=== PATIENT | female | born 1950 | race Caucasian/White ===

== ENCOUNTER → 2019-10-02 13:15 | Outpatient (CLI) | payer OTHER, SELFPAY ==
--- NOTE | ~2019-10-02 | XR_ITS ---
EXAMINATION: XR chest 2V DATE: 10/02/2019 13:41 INDICATION: Dyspnea, unspecified. TECHNIQUE: Frontal and lateral views of the chest were obtained. COMPARISON: Chest 2 views 10/18/2017 FINDINGS: The chest demonstrates clear lungs without pneumonia, pleural effusion, or pneumothorax. Th e heart size is normal. IMPRESSION: 1. No acute cardiopulmonary disease. Reviewed, dictated and finalized at location A. 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
== END ==
PROVIDERS: PCP Emergency Medicine; Visit Provider Emergency Medicine
DX: R06.00 Dyspnea, unspecified (principal)
CPT/HCPCS: 71046

== ENCOUNTER 2022-02-08 01:09 | Day surgery (SDC) | payer OTHER, SELFPAY ==
[2022-01-23 11:32] VITALS: BMI 25.0
[2022-02-08 06:47] VITALS: BP 98/73; PULSE 74; RESP 18; TEMP 36.5; O2SAT 100
[2022-02-08] MEDS: LACTATED RINGERS 1,000 ML 150 ML IV CONT (06:56)
--- NOTE | 2022-02-08 07:27 | P.PNAN_ITS ---
Anes - Initial Pre Proc Eval Procedure: Operation Date: 02/08/22 08:00 Proposed Procedures p Screening Colonoscopy - Allen Leonard MD Date/Time: 02/08/22 07:27 Surgeon: Allen Leonard MD Pre Op Diagnosis: hx of colon polyps Patient Data Age: 71 Gender: F Height: 1.6 m Weight: 61.8 kg Last Vital Signs Temp 36.5 C 02/08/22 06:47 Pulse 74 02/08/22 06:47 Resp 18 02/08/22 06:47 BP 98/73 L 02/08/22 06:47 Pulse Ox 100 02/08/22 06:47 O2 Del Method Room Air 02/08/22 06:47 Allergies Allergy/AdvReac Type Severity Reaction Status Date / Time No Known Allergies Allergy Unknown Verified 02/08/22 06:44 Home Medications Medication Instructions Recorded Confirmed Type aspirin 81 mg tablet,delayed 81 mg PO DAILY 10/13/19 01/23/22 History release losartan 50 mg tablet 50 mg PO DAILY #90 tabs 08/23/21 01/23/22 Rx Lactobacillus 1 cap PO DAILY 01/23/22 01/23/22 History acidophilus-Bifidobac.animalis 2.5 billion cell capsule (Daily Probiotic) ascorbic acid (vitamin C) 500 mg 500 mg PO DAILY 01/23/22 01/23/22 History tablet coffee extract 100 mg-phosphatidyl 1 cap PO DAILY 01/23/22 01/23/22 History serine 100 mg capsule (Neuriva Original) krill oil 500 mg capsule 500 mg PO DAILY 01/23/22 01/23/22 History loratadine 10 mg tablet (Claritin) 10 mg PO DAILY 01/23/22 01/23/22 History multivitamin with minerals-folic 1 tablet PO DAILY 01/23/22 01/23/22 History acid 0.4 mg tablet simvastatin 10 mg tablet 10 mg PO DAILY 01/23/22 01/23/22 History vitamin B complex 1 tablet PO DAILY 01/23/22 01/23/22 History Patient hx anesthesia problems: none Family hx anesthesia problems: none Results Review: All pre-operative results and documents have been reviewed as part of the pre- operative evaluation. [facility] Past Medical History Medical History (Updated 02/08/22 @ 07:28 by Earl rByson MD) Anxiety HLD (hyperlipidemia) HTN (hypertension) Sinusitis Family History Family History Father Cerebrovascular accident, Onset Age: 87 Sibling Cerebrovascular accident Mother Family history of Alzheimer's disease, Onset Age: 80 Social History Social History Smoking status: Never smoker Alcohol intake: never Living arrangements: with family Spiritual care concerns: No Anes - Eval Final PreProcedure Day of Procedure 02/08/22 07:27 Patient weight: normal Heart: regular rate and rhythm Lungs: clear to auscultation and normal air movement Airway: Mallampati scale class II Neurological: alert and oriented Last oral intake: >/= 8 hours ASA classification: II Emergent: no Anesthetic plan: proceed Anesthesia type and monitoring: general GIVS Results Review: All pre-operative results and documents have been reviewed as part of the pre- operative evaluation. Informed Consent: The patient's anesthetic plan and its attendant risks and benefits were discussed with the patient/family/POA. Questions were solicited and answers provided to the satisfaction of the patient/
--- NOTE | 2022-02-08 07:53 | PM.HPGS ---
History of Present Illness History of Present Illness Consent: Risks, benefits, and alternatives have been discussed and questions answered. Patient agrees to proceed with procedure. Chief complaint: hx of colon polyps Narrative: Mike Chapman is a 71 year old female with colon polyps in 2019 Review of Systems Constitutional: Constitutional: Denies headache(s) and Denies weakness Eyes: Eyes: Denies blurry vision ENT: Reports Normal hearing present, Denies headache(s) and Denies neck pain Cardiovascular: Cardiovascular: Denies chest pain and Denies dyspnea Respiratory: Respiratory: Denies dyspnea Gastrointestinal: Gastrointestinal: Reports no additional gastrointestinal complaints Genitourinary: Genitourinary: Denies dysuria Musculoskeletal: Musculoskeletal: Denies neck pain Integumentary/Breasts: Skin/Breast: Denies dry skin Neurologic: Reports Normal hearing present, Denies headache(s) and Denies weakness Psychiatric: Psychiatric: Denies anxiety Endocrine: Endocrine: Denies change in body appearance Hematologic/Lymphatic: Hematologic/Lymphatic: Denies easy bleeding Allergic/Immunologic: Allergic/Immunologic: Denies urticaria PMF Past Medical History Medical History (Updated 02/08/22 @ 07:54 by Allen Leonard MD) Adenomatous colon polyp Anxiety HLD (hyperlipidemia) HTN (hypertension) Sinusitis Family History Family History Father Cerebrovascular accident, Onset Age: 87 Sibling Cerebrovascular accident Mother Family history of Alzheimer's disease, Onset Age: 80 Social History Social History Smoking status: Never smoker Alcohol intake: never Living arrangements: with family Spiritual care concerns: No Meds Home Medications and Allergies Home Medications Medication Instructions Recorded Confirmed Type aspirin 81 mg tablet,delayed 81 mg PO DAILY 10/13/19 01/23/22 History release losartan 50 mg tablet 50 mg PO DAILY #90 tabs 08/23/21 01/23/22 Rx Lactobacillus 1 cap PO DAILY 01/23/22 01/23/22 History acidophilus-Bifidobac.animalis 2.5 billion cell capsule (Daily Probiotic) ascorbic acid (vitamin C) 500 mg 500 mg PO DAILY 01/23/22 01/23/22 History tablet coffee extract 100 mg-phosphatidyl 1 cap PO DAILY 01/23/22 01/23/22 History serine 100 mg capsule (Neuriva Original) krill oil 500 mg capsule 500 mg PO DAILY 01/23/22 01/23/22 History loratadine 10 mg tablet (Claritin) 10 mg PO DAILY 01/23/22 01/23/22 History multivitamin with minerals-folic 1 tablet PO DAILY 01/23/22 01/23/22 History acid 0.4 mg tablet simvastatin 10 mg tablet 10 mg PO DAILY 01/23/22 01/23/22 History vitamin B complex 1 tablet PO DAILY 01/23/22 01/23/22 History Allergies Allergy/AdvReac Type Severity Reaction Status Date / Time No Known Allergies Allergy Unknown Verified 02/08/22 06:44 Vital Signs Vital Signs - 24 hr 02/08/22 06:47 Temperature 97.7 F Pulse Rate 74 Respiratory Rate 18 Blood Pressure 98/73 L Pulse Oximetry 100 Oxygen Delivery Room Air Exam Const: General: comfortable and no acute distress HENMT: General nose exam: Normal nares present Eyes: General: appearance normal, both eyes and all related structures Neck: Neck: no JVD Resp: Auscultation: clear to auscultation bilaterally Cardio: Rate: regular rate Rhythm: regular rhythm GI: Inspection: non-distended GI Palp: Yes Soft to palpation Skin: General skin exam: normal color Neuro: General: gait normal Speech: normal speech Extrem: General: normal to inspection Psych: Mental Status: mental status grossly normal Assessment and Plan Assessment and plan (1) Adenomatous colon polyp: Code(s): D12.6 - Benign neoplasm of colon, unspecified Status: Acute Assessment and Plan: colonoscopy
[2022-02-08 08:22] VITALS: BP 98/57; PULSE 66; RESP 17; O2SAT 98
[2022-02-08 08:32] VITALS: BP 148/82; PULSE 64; RESP 21; O2SAT 96
[2022-02-08 08:42] VITALS: BP 133/84; PULSE 67; RESP 16; O2SAT 100
== END 2022-02-08 08:48 | disposition home or self-care (01) ==
PROVIDERS: PCP Emergency Medicine; Visit Provider Internal Medicine Gastroenterology
PROC: 0DJD8ZZ Inspection of Lower Intestinal Tract, Via Natural or Artificial Opening Endoscopic (ICD-10-PCS; CPT 45378; principal; 2022-02-08 08:00)
DX: Z12.11 Encounter for screening for malignant neoplasm of colon (principal); D12.2 Benign neoplasm of ascending colon; D12.3 Benign neoplasm of transverse colon; D12.4 Benign neoplasm of descending colon; K57.30 Diverticulosis of large intestine without perforation or abscess without bleeding; I10 Essential (primary) hypertension; E78.5 Hyperlipidemia, unspecified; F41.9 Anxiety disorder, unspecified; Z79.82 Long term (current) use of aspirin
CPT/HCPCS: 45385; 88305; J2001; J2704; J7120

== ENCOUNTER → 2022-03-13 13:50 | Outpatient (CLI) | payer OTHER, SELFPAY ==
--- NOTE | ~2022-03-13 | MM_ITS ---
EXAMINATION: MM screening [facility] BI w manuel HISTORY: Screening mammogram TECHNIQUE: Craniocaudal and mediolateral oblique 3-D tomosynthesis images were obtained and synthetic 2-D images were generated. CAD analysis was submitted and interpreted. COMPARISON: 04/15/2019, 03/01/2018, 12/25/2016 bilateral screening mammogram examinations BREAST PARENCHYMAL COMPOSITION: The breasts are heterogeneously dense, which may obscure small masses . FINDINGS: There is no evidence of suspicious mass, calcification, or architectural distortion to sugg est malignancy in either breast. There has been no suspicious interval change. IMPRESSION: 1. No mammographic evidence of malignancy. 2. Recommend routine screening mammography in one year. BI-RADS Category 1: Negative Reviewed, dictated and finalized at location A.
== END ==
PROVIDERS: PCP Emergency Medicine; Visit Provider Obstetrics & Gynecology
DX: Z12.31 Encounter for screening mammogram for malignant neoplasm of breast (principal)
CPT/HCPCS: 77063; 77067

== ENCOUNTER 2022-11-09 12:27 | Outpatient (CLI) | payer OTHER, SELFPAY ==
--- NOTE | ~2022-11-09 | US_ITS ---
EXAMINATION: US carotid duplex BI DATE: 11/09/2022 13:26 INDICATION: Carotid atherosclerosis and stenosis TECHNIQUE: Grayscale, color Doppler, and pulsed Doppler images of the cervical carotid arteries were obtained. The degree of vessel stenosis is placed in one of the following categories: normal, <50%, 5 0-69%, >=70% but less than near-occlusion, near-occlusion, or total occlusion. Note that percent sten osis relative to normal distal artery lumen diameter is indirectly measured from velocity measurement s as described by Naif, et al. Radiology 2003; 229:340-346. COMPARISON: None. FINDINGS: RIGHT: The right common carotid artery (CCA) peak systolic velocity (PSV) is 90 cm/s. The right internal car otid artery (ICA) PSV is 59 cm/s. The right ICA end-diastolic velocity (EDV) is 20 cm/s. The right IC A/CCA PSV ratio is 0.7. Grayscale and color Doppler images yield an estimate of <50% diameter reducti on from plaque in the ICA. The external carotid artery (ECA) PSV is 106 cm/s. There is antegrade flow in the right vertebral artery. LEFT: The left CCA PSV is 92 cm/s. The left ICA PSV is 70 cm/s. The left ICA EDV is 28 cm/s. The left ICA/C CA PSV ratio is 0.8. Grayscale and color Doppler images yield an estimate of <50% diameter reduction from plaque in the ICA. The ECA PSV is 87 cm/s. There is antegrade flow in the left vertebral artery. IMPRESSION: 1. <50% stenosis in the right internal carotid artery. 2. <50% stenosis in the left internal carotid artery. Reviewed, dictated and finalized at location A.
== END 2022-11-09 12:28 | disposition home or self-care (01) ==
PROVIDERS: PCP Emergency Medicine; Visit Provider Emergency Medicine
DX: I65.23 Occlusion and stenosis of bilateral carotid arteries (principal); R09.89 Other specified symptoms and signs involving the circulatory and respiratory systems
CPT/HCPCS: 93880

== ENCOUNTER 2023-04-14 17:47 | Emergency (ER) | payer MEDICARE, SELFPAY ==
--- NOTE | 2023-04-14 17:54 | ED.GENADULT ---
HPI - General Adult General Chief complaint: Neck Pain/Injury Stated complaint: L SHOULDER/UPPER BACK/NECK PAIN Time Seen by Provider: 04/14/23 17:54 Source: patient Mode of arrival: ambulatory Limitations: no limitations History of Present Illness HPI narrative: 72 yo F presents with c/o upper back and neck pain radiating to both shoulders. Reports pain to R shoulder started 2 to 3 days ago. Began radiating into upper back and neck yesterday while at work. 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 Today has pain into L shoulder also and now not as bad to R shoulder. cannot turn neck to L side due to pain and stiffness. Cannot lift L arm above head, pain to L shoulder worse with movement. States upper back is painful and burning Pain. took aleve last night. Did not take any pain medication today. Pt ambulatory with steady gait. All systems reviewed and negative except as noted above. Related Data Home Medications Medication Instructions Recorded Confirmed aspirin 81 mg tablet,delayed 81 mg PO DAILY 10/13/19 04/14/23 release Lactobacillus 1 cap PO DAILY 01/23/22 04/14/23 acidophilus-Bifidobac.animalis 2.5 billion cell capsule (Daily Probiotic) ascorbic acid (vitamin C) 500 mg 500 mg PO DAILY 01/23/22 04/14/23 tablet krill oil 500 mg capsule 500 mg PO DAILY 01/23/22 04/14/23 multivitamin with minerals-folic 1 tablet PO DAILY 01/23/22 04/14/23 acid 0.4 mg tablet Allergies Allergy/AdvReac Type Severity Reaction Status Date / Time No Known Allergies Allergy Unknown Verified 04/14/23 17:54 Review of Systems Review of Systems: CONSTITUTIONAL: Denies fever, chills, or sweats. EYES: Denies visual changes, redness, or discharge. ENT: Denies rhinorrhea, congestion, sore throat, or otalgia. CARDIOVASCULAR: Denies chest pain, palpitations, or edema. RESPIRATORY: Denies cough or dyspnea. GASTROINTESTINAL: Denies abdominal pain, nausea, vomiting, or diarrhea. GENITOURINARY: Denies dysuria or hematuria. SKIN: Denies rash or itching. MUSCULOSKELETAL: Reports upper back pain, bilateral shoulder pain, neck pain. NEUROLOGIC: Denies headache, numbness, or weakness. PSYCHIATRIC: Denies anxiety or depression. All other systems reviewed are negative, except as documented in HPI. [facility] Past Medical History Medical History Adenomatous colon polyp Anxiety HLD (hyperlipidemia) HTN (hypertension) Sinusitis Family History Family History Father Cerebrovascular accident, Onset Age: 87 Sibling Cerebrovascular accident Mother Family history of Alzheimer's disease, Onset Age: 80 Social History Social History Smoking status: Never smoker Alcohol intake: never Lack of Transportation: No Lack of Food: Never True Current Housing: I Have Housing Concerned About Future Housing: No Difficulty Paying Gas/Electric Bills: No Difficulty Paying for Meds: No Currently Unemployed: No Education: High School Diploma/GED Difficulty w/ Childcare or Family Care: No Living arrangements: with family Spiritual care concerns: No Comments At time of signature, agree with nursing past medical, surgical, social and family history. There is no relevant family history pertinent to the presenting complaint. Exam Narrative: GENERAL: This is a well-nourished, well-developed patient, in no apparent distress. HEAD: normocephalic, atraumatic. EYES: PERRL. Sclera clear/white. Vision is grossly intact. EARS: External ears normal NOSE: External nose normal NECK: Neck supple, without lymphadenopathy, masses or thyromegaly. No midline tenderness. tenderness to bilateral trapezius muscle. decreased ROM due to pain. CARDIOVASCULAR: Regular rate and rhythm without murmurs, gallops, or r
[2023-04-14 17:56] VITALS: BP 176/88; PULSE 96; RESP 16; TEMP 37.6; O2SAT 100
== END 2023-04-14 18:12 | disposition home or self-care (01) ==
PROVIDERS: Emergency Provider Nurse Practitioner Family; PCP Emergency Medicine
DX: S16.1XXA Strain of muscle, fascia and tendon at neck level, initial encounter (principal); X50.3XXA Overexertion from repetitive movements, initial encounter; Y99.0 Civilian activity done for income or pay; M54.6 Pain in thoracic spine; E78.5 Hyperlipidemia, unspecified; I10 Essential (primary) hypertension; Z79.82 Long term (current) use of aspirin
CPT/HCPCS: 99213; G0463

== ENCOUNTER → 2023-05-07 14:00 | Outpatient (CLI) | payer MEDICARE, SELFPAY ==
--- NOTE | ~2023-05-07 | MM_ITS ---
EXAMINATION: MM screening [facility] BI w manuel HISTORY: Screening TECHNIQUE: Craniocaudal and mediolateral oblique 3-D tomosynthesis images were obtained and synthetic 2-D images were generated. CAD analysis was submitted and interpreted. COMPARISON: Comparison to multiple prior studies sequentially, with oldest reviewed study dated 12/2015. BREAST PARENCHYMAL COMPOSITION: There are scattered areas of fibroglandular density. FINDINGS: There is no evidence of suspicious mass, calcification, or architectural distortion to sugg est malignancy in either breast. There has been no suspicious interval change. IMPRESSION: 1. No mammographic evidence of malignancy. 2. Recommend routine screening mammography in one year. BI-RADS Category 1: Negative Reviewed, dictated and finalized at location A.
== END ==
PROVIDERS: PCP Emergency Medicine; Visit Provider Obstetrics & Gynecology
DX: Z12.31 Encounter for screening mammogram for malignant neoplasm of breast (principal)
CPT/HCPCS: 77063; 77067

== ENCOUNTER 2023-12-27 09:54 | Emergency (ER) | payer MEDICARE, SELFPAY ==
[2023-12-27 10:05] VITALS: BP 145/88; PULSE 86; RESP 16; TEMP 36.9; O2SAT 98
--- NOTE | 2023-12-27 10:18 | ED.GENADULT ---
HPI - General Adult General Chief complaint: Upper Respiratory Infection Stated complaint: Sore Throat Time Seen by Provider: 12/27/23 10:24 Source: patient, RN notes reviewed and old records reviewed Mode of arrival: ambulatory Limitations: no limitations History of Present Illness HPI narrative: 85 [facility] female to [facility] for complaint cough and hoarseness for 2 weeks. Patient endorses that she was seen at a clinic 1 week ago and given a prescription for prednisone and benzonatate. Patient endorses finishing 5 day course of prednisone and utilizing benzonatate as needed with little improvement. Patient denies chest pain, shortness of breath, fever, allergies. patient able to tolerate fluids by mouth. Respirations even and nonlabored. Patient in no acute distress. Related Data Home Medications Medication Instructions Recorded Confirmed aspirin 81 mg tablet,delayed 81 mg PO DAILY 10/13/19 12/27/23 release Lactobacillus 1 cap PO DAILY 01/23/22 12/27/23 acidophilus-Bifidobac.animalis 2.5 billion cell capsule (Daily Probiotic) ascorbic acid (vitamin C) 500 mg 500 mg PO DAILY 01/23/22 12/27/23 tablet multivitamin with minerals-folic 1 tablet PO DAILY 01/23/22 12/27/23 acid 0.4 mg tablet Allergies Allergy/AdvReac Type Severity Reaction Status Date / Time No Known Allergies Allergy Unknown Verified 12/27/23 10:02 Review of Systems Review of Systems: All systems reviewed & are unremarkable except as noted in HPI and below Constitutional: Constitutional: Reports as per HPI and Reports fever(s) Eyes: Eyes: Reports no additional eye complaints ENT: Reports as per HPI, Reports hoarseness and Reports sore throat Cardiovascular: Cardiovascular: Reports no additional cardiovascular complaints, Denies chest pain and Denies dyspnea Respiratory: Respiratory: Reports no additional respiratory complaints, Reports cough and Denies dyspnea Musculoskeletal: Musculoskeletal: Reports no additional musculoskeletal complaints Neurologic: Reports system reviewed and no additional complaints, except as documented Psychiatric: Psychiatric: Reports no additional psychiatric complaints PMFSH Past Medical History Medical History Adenomatous colon polyp Anxiety Contact dermatitis HLD (hyperlipidemia) HTN (hypertension) Respiratory tract congestion with cough Sinusitis Family History Family History Father Cerebrovascular accident, Onset Age: 87 Sibling Cerebrovascular accident Mother Family history of Alzheimer's disease, Onset Age: 80 Social History Social History Smoking status: Never smoker Alcohol intake: never Current Housing: Decline to Answer Concerned About Future Housing: Decline to Answer Difficulty Paying Gas/Electric Bills: Decline to Answer Difficulty Paying for Meds: Decline to Answer Currently Unemployed: Decline to Answer Education: Decline to Answer Difficulty w/ Childcare or Family Care: Decline to Answer Living arrangements: with family Spiritual care concerns: No Comments At the time of my signature, I reviewed and agree with the nursing past medical, surgical, social, and family history. There is no relevant family history pertinent to the patient complaint. Exam Const: General: cooperative, healthy appearing, comfortable, no acute distress, alert, tired appearing and well nourished Nutritional Appearance: well nourished Orientation/consciousness: patient oriented x3 Limitations: no limitations HENMT: Head: normal to inspection Ears: external ears normal Face/Nose/Sinus: Normal external nose present, Normal nares present, normal facial exam, No erythema and No edema Face and sinus: normal facial exam, no erythema and no edema Mouth: Yes Normal oral
== END 2023-12-27 10:55 | disposition home or self-care (01) ==
PROVIDERS: Emergency Provider Nurse Practitioner Family; PCP Emergency Medicine
DX: J40 Bronchitis, not specified as acute or chronic (principal); J04.0 Acute laryngitis; E78.5 Hyperlipidemia, unspecified; I10 Essential (primary) hypertension; Z79.82 Long term (current) use of aspirin
CPT/HCPCS: 99213; G0463

== ENCOUNTER 2024-02-28 13:24 | Outpatient (CLI) | payer MEDICARE, SELFPAY ==
--- NOTE | 2024-02-28 13:50 | ECG_ITS ---
Test Date: 2024-02-28 13:57:33 Measurements Intervals [place] Rate: 74 P: 65 [place]: 189 QRS: -12 QRSD: 92 T: 43 QT: 376 QTc: 418 Interpretive Statements SINUS RHYTHM BORDERLINE ST ABNORMALITY- ANTEROLAT/HIGH LAT LEADS BORDERLINE ECG No previous ECG available for comparison Electronically Signed On 02-28-2024 14:13:39 CDT by Link Conde D.O.
== END 2024-02-28 13:25 | disposition home or self-care (01) ==
LOC: ANHCARD 13:25
PROVIDERS: PCP Emergency Medicine; Visit Provider Emergency Medicine
DX: R00.2 Palpitations (principal)
CPT/HCPCS: 93005

== ENCOUNTER 2024-03-06 12:52 | Outpatient (CLI) | payer MEDICARE, SELFPAY ==
--- NOTE | ~2024-03-06 | DEXA_ITS ---
Bone Density Report Name: BONNIE EDWARDS Age: 73 Sex: Female Ethnicity: White Date of : 1950 Indication: postmenopausal; screening for osteoporosis; history of glucocorticoids; Referring Provider: LANEY MONROE Study: Bone densitometry was performed. Exam Date: March 06, 2024 Accession number: [id number] Bone Density: Region BMD T-score Z-score Classification AP Spine(L1, L2, L3) 0.895 -1.1 1.0 Osteopenia Femoral Neck (Left) 0.761 -0.8 1.1 Normal Total Hip (Left) 0.841 -0.8 0.8 Normal Femoral Neck (Right) 0.661 -1.7 0.2 Osteopenia Total Hip (Right) 0.792 -1.2 0.3 Osteopenia Total Hip Mean 0.816 -1.0 0.6 Normal World Health Organization criteria for BMD impression classify patients as: Normal (T-score at or above -1.0), Osteopenia (T-score between -1.0 and -2.5), or Osteoporosis (T-score at or below -2.5). 10-year Fracture Risk(1): Major Osteoporotic Fracture 17% Hip Fracture 3.3% Reported Risk Factors: [place] (), Neck BMD=0.661, BMI=25.6, glucocorticoids (1) FRAX(R) Version 3.08. Fracture probability calculated for an untreated patient. Fracture probability may be lower if the patient has received treatment. Clinical Information Provided by Patient: Has taken Glucocorticoids Has used the following medications: Vitamin D Patient maximum height was 63 Menopause Age: 55 No regular weight bearing exercise Drinks caffeinated beverages Onset of menses at age 15 Number of children 2 Missed period for more than 6 months in a row Impression: The patient has low bone mass, based on the Right Femoral Neck T-score. The patient has an estimated ten-year risk of hip fracture of 3.3% and an estimated ten-year risk of major fracture of 17%, based on the WHO FRAX algorithm. The patient has risk factors, including: history of glucocorticoid therapy. Discussion: BONE DENSITY IS LOW AT ONE OR MORE SKELETAL SITES. THE PATIENT'S BMD AND CLINICAL RISK FACTORS CONTRIBUTE TO THIS PATIENT'S INCREASED RISK OF FRACTURE. This patient's lowest T-score is low at one or more skeletal sites. It meets the World Health Organization's (WHO) criteria for ?low bone mass? (T-score between -1.0 and -2.5). The patient's 10-year risk of hip fracture as calculated by FRAX exceeds the threshold where pharmacological therapy is recommended by the National Osteoporosis Foundation (NOF). However, all treatment decisions require clinical judgment and consideration of individual patient factors, including patient preferences, comorbidities, previous drug use, risk factors not captured in the FRAX model (e.g., frailty, falls, vitamin D deficiency, increased bone turnover, interval significant decline in bone density) and possible under or overestimation of fracture risk by FRAX. The patient should follow
== END 2024-03-06 12:53 | disposition home or self-care (01) ==
PROVIDERS: PCP Emergency Medicine; Visit Provider Emergency Medicine
DX: M85.89 Other specified disorders of bone density and structure, multiple sites (principal); Z78.0 Asymptomatic menopausal state
CPT/HCPCS: 77080

== ENCOUNTER 2024-07-26 08:43 | Emergency (ER) | payer MEDICARE, SELFPAY ==
[2024-07-26 08:50] VITALS: BP 146/90; PULSE 85; RESP 16; TEMP 36.6; O2SAT 100
--- NOTE | 2024-07-26 08:50 | ED.URI ---
HPI - URI/Sore Throat General Chief Complaint: Upper Respiratory Infection Stated Complaint: Sinus Infection Symptoms Time Seen by Provider: 07/26/24 09:02 History of Present Illness HPI Narrative: 73 y/o female presented for c/o nasal congestion and drainage, cough, and hoarse voice. Symptoms started about 6 days ago. with similar symptoms. Denies chest pain, sob, wheezing, n/v/d/f/c. Taking otc meds for symptoms. Related Data Home Medications Medication Instructions Recorded Confirmed aspirin 81 mg tablet,delayed 81 mg PO DAILY 10/13/19 07/02/24 release Lactobacillus 1 cap PO DAILY 01/23/22 07/02/24 acidophilus-Bifidobac.animalis 2.5 billion cell capsule (Daily Probiotic) ascorbic acid (vitamin C) 500 mg 500 mg PO DAILY 01/23/22 07/02/24 tablet multivitamin with minerals-folic 1 tablet PO DAILY 01/23/22 07/02/24 acid 0.4 mg tablet Allergies Allergy/AdvReac Type Severity Reaction Status Date / Time No Known Allergies Allergy Unknown Verified 07/26/24 08:51 Review of Systems Review of Systems: CONSTITUTIONAL: Denies body aches, fever, chills, or sweats. EYES: Denies visual changes, redness, or discharge. ENT: Reports rhinorrhea, congestion, denies sore throat or otalgia. CARDIOVASCULAR: Denies chest pain, palpitations, or edema. RESPIRATORY: reports cough Denies dyspnea. GASTROINTESTINAL: Denies abdominal pain, nausea, vomiting, or diarrhea. SKIN: Denies rash MUSCULOSKELETAL: Denies back pain, joint pain, or myalgia. NEUROLOGIC: Denies headache PMFSH Past Medical History Medical History Adenomatous colon polyp Anxiety Contact dermatitis HLD (hyperlipidemia) HTN (hypertension) Respiratory tract congestion with cough Sinusitis Family History Family History Father Cerebrovascular accident, Onset Age: 87 Sibling Cerebrovascular accident Mother Family history of Alzheimer's disease, Onset Age: 80 Social History Social History Smoking status: Never smoker Alcohol intake: never Current Housing: Decline to Answer Concerned About Future Housing: Decline to Answer Difficulty Paying Gas/Electric Bills: Decline to Answer Difficulty Paying for Meds: Decline to Answer Currently Unemployed: Decline to Answer Education: Decline to Answer Difficulty w/ Childcare or Family Care: Decline to Answer Living arrangements: with family Spiritual care concerns: No Exam Narrative: GENERAL: well-appearing, no acute distress. EYES: conjunctivae clear ENT: Mucous membranes moist. Nasal congestion and drainage. TM pearly klein with normal light reflex bilaterally; no tragal tenderness. Oropharynx erythematous without lesions. No drooling, no hoarseness, no trismus, uvula midline. No tripod positioning, hot potato voice, or soft palate swelling. NECK: Supple. No lymphadenopathy CHEST: Clear to auscultation, breath sounds equal. No respiratory distress, speaks in full sentences. HEART: Regular rate and rhythm. No murmur heard. SKIN: Warm, dry, no rash. NEURO: Alert and oriented x3. Course Course Emergency Course: Patient is aware of diagnosis, understands and agrees to treatment plan. Anticipatory guidance given. Patient agrees to follow-up as directed and is aware of reasons to seek care at the emergency department. Portions of this record may have been created with voice recognition software Level of Care: Express Care Visit Vital Signs Vital signs: Vital Signs Temperature 98 F 07/26/24 08:50 Pulse Rate 85 07/26/24 08:50 Respiratory Rate 16 07/26/24 08:50 Blood Pressure 146/90 H 07/26/24 08:50 Pulse Oximetry 100 07/26/24 08:50 Temperature 98 F 07/26/24 08:50 Pulse Rate 85 07/26/24 08:50 Respiratory Rate 16 07/26/24 08:50 Blood Pressure 146/90 H 07/26/24 08:50 Pulse Oximetry 100 07/26/24 08:50 MDM - URI/Sore Throat MDM Narrative Medical decision making narrative: neg flu, covid, strep result reviewed with pt. Advise supportive treatments. Patient is appropriate for outpatient treatment and follow-up. Differential Diagnosis Differential diagnosis: Likely upper respiratory infection, viral infection and pharyngitis Discharge Plan Discharge Clinical Impression: Upper respiratory infection Patient Disposition: Home, Self-Care Condition: Stable Instructions: Upper Respiratory Infection (ED) Additional Instructions: Flu COVID negative. Rapid strep swab was negative today You will be notified in a few days if the culture comes back positive for strep, and appropriate antibiotics will be called in at that time. if symptoms are due to a viral illness, it is not treated with antibiotics. Viral symptoms can be present for up to 10-14 days. Recommend Flonase spray and Zyrtec for sinus congestion Cough syrup may cause drowsiness; avoid driving or take it at night time. Tylenol every 8 hours as needed for pain/fever Soft foods, cool liquids, warm tea. Gargle with warm saltwater twice a day. Chloraseptic spray and throat lozenges. Rest and stay hydrated. --Follow up with your PCP --Go to the ER immediately if you cannot swallow your saliva, trouble breathing/wheezing, throat swelling, pain is persistent and severe Prescriptions: New prednisone 20 mg tablet 40 mg PO DAILY 5 Days Qty: 10 0RF No Action aspirin 81 mg tablet,delayed release (DR/EC) 81 mg PO DAILY benzonatate 100 mg capsule 100 mg PO TID Qty: 30 0RF fluticasone propionate [Flonase Allergy Relief] 50 mcg/actuation spray,suspension 1 spray intranasal BID Qty: 48 0RF Rx Instructions: administer into each nostril ascorbic acid (vitamin C) 500 mg Tablet 500 mg PO DAILY multivit with min-folic acid [Adult One Daily Multivitamin] 0.4 mg Tablet 1 tablet PO DAILY Daily Probiotic 2.5 billion cell Capsule 1 cap PO DAILY cholecalciferol (vitamin D3) 50 mcg (2,000 unit) capsule 50 mcg PO DAILY Qty: 90 3RF alprazolam 0.5 mg tablet 0.5 mg PO BID PRN (Reason: anxiety) Qty: 30 2RF loratadine 10 mg tablet See Rx Instructions .ROUTE .COMPLEX Qty: 90 2RF Dose Instruction: TAKE 1 TABLET BY MOUTH EVERY DAY Rx Instructions: TAKE 1 TABLET BY MOUTH EVERY DAY simvastatin 10 mg tablet See Rx Instructions .ROUTE .COMPLEX Qty: 100 2RF Dose Instruction: TAKE 1 TABLET BY MOUTH EVERY DAY Rx Instructions: TAKE 1 TABLET BY MOUTH EVERY DAY losartan 50 mg tablet See Rx Instructions .ROUTE .COMPLEX Qty: 100 2RF Dose Instruction: TAKE 1 TABLET BY MOUTH EVERY DAY Rx Instructions: TAKE 1 TABLET BY MOUTH EVERY DAY Follow-up/Referrals: Deven Solis MD [Primary Care Provider] - Time of Disposition: 09:19
[2024-07-26 09:13] LABS: EDSTREPNEGPOS1 Negative (Negative)
[2024-07-26 09:15] LABS: EDCOVIDSCREEN Negative (Negative); EDINFLUASCREEN Negative (Negative); EDINFLUBSCREEN Negative (Negative)
== END 2024-07-26 09:21 | disposition home or self-care (01) ==
PROVIDERS: Emergency Provider Nurse Practitioner Family; PCP Emergency Medicine
DX: J06.9 Acute upper respiratory infection, unspecified (principal); Z20.822 Contact with and (suspected) exposure to COVID-19; I10 Essential (primary) hypertension; E78.5 Hyperlipidemia, unspecified; Z79.82 Long term (current) use of aspirin
CPT/HCPCS: 87081; 87426; 87804; 87880; 99213; G0463